=== PATIENT | female | born 1990 | race Caucasian/White ===

== ENCOUNTER 2023-04-11 14:39 | Outpatient (CLI) | payer BC ==
[2023-04-11] MEDS ORDERED: Magnevist 469MG/ML 20 ML VIAL ONE (15:32)
== END 2023-04-11 14:40 | disposition home or self-care (01) ==
LOC: CSHMRI 14:39
PROVIDERS: ATTEND Psychiatry & Neurology Neurology
DX: R51.9 Headache, unspecified (principal)
CPT/HCPCS: 70553; A9579